=== PATIENT | female | born 1960 | race Caucasian/White ===

== ENCOUNTER 2020-04-27 18:01 | Emergency (ER) | payer OTHER ==
[2020-04-28 10:58] LABS: SARS-CoV-2 MS2 Positive; SARS-CoV-2 N Gene Positive; SARS-CoV-2 S Gene Positive; SARS-CoV-2 by NAA DETECTED (NotDetected); SARS-CoV-2 orf1ab Positive
== END 2020-04-27 19:20 | disposition home or self-care (01) ==
LOC: ERS 18:01
DX: U07.1 COVID-19 (principal); K21.9 Gastro-esophageal reflux disease without esophagitis
CPT/HCPCS: 87635; 99283; U0003

== ENCOUNTER 2020-05-03 05:13 | Emergency (ER) | payer OTHER ==
[2020-05-03] MEDS ORDERED: Lidocaine Viscous Sol 2% 15 ml UD Cup ONE (05:51)
[2020-05-03] MEDS ORDERED: Dexamethasone 10 MG/ML VIAL ONE (05:51)
== END 2020-05-03 06:08 | disposition home or self-care (01) ==
LOC: ERS 05:13
DX: U07.1 COVID-19 (principal); J02.9 Acute pharyngitis, unspecified; K21.9 Gastro-esophageal reflux disease without esophagitis
CPT/HCPCS: 99283; J1100

== ENCOUNTER 2020-05-05 06:23 | Emergency (ER) | payer OTHER | END 2020-05-05 07:07 | disposition home or self-care (01) | LOC: ERS 06:23 | DX: J02.9 Acute pharyngitis, unspecified (principal); K21.9 Gastro-esophageal reflux disease without esophagitis | CPT/HCPCS: 99283 ==